=== PATIENT | male | born 1970 | race Caucasian/White ===

== ENCOUNTER 2019-12-02 21:00 | Emergency (ER) | payer SELFPAY ==
[2019-12-02 21:13] VITALS: BP 138/96; PULSE 70
[2019-12-02] MEDS ORDERED: Cyclobenzaprine 10 MG Tab PO ONE (21:30)
[2019-12-02] MEDS ORDERED: Ketorolac 60 MG/2 ML SDV IM ONE (21:30)
--- NOTE | 2019-12-02 21:34 | EDM.PDOC ---
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 He is complaining of mid back pain also had some bleeding from the back of his head which is now controlled Treatments ADAPTIVE PHYSICAL EDUCATOR: Reports: Other (see below) Other Treatments ADAPTIVE PHYSICAL EDUCATOR: none Occipital Pain Score (Numeric/FACES): 5 - Related Data Allergies Allergy/AdvReac Type Severity Reaction Status Date / Time No Known Allergies Allergy Verified 12/02/19 21:14 Home Meds: Home Meds NK [No Known Home Meds] 06/22/16 [History] Past Medical History HEENT History: Reports: Impaired Vision - Infectious Disease History Infectious Disease History: Reports: Chicken Pox - Past Surgical History GI Surgical History: Reports: Cholecystectomy Musculoskeletal Surgical History: Reports: Other (See Below) Social & Family History - Tobacco Use Smoking Status *Q: Never Smoker Second Hand Smoke Exposure: No - Caffeine Use Caffeine Use: Reports: Coffee, Soda - Recreational Drug Use Recreational Drug Use: No ED ROS GENERAL - Review of Systems Review Of Systems: See Below Constitutional: Reports: No Symptoms HEENT: Reports: No Symptoms Respiratory: Reports: Other (Pain with a deep breath) Cardiovascular: Reports: No Symptoms GI/Abdominal: Reports: No Symptoms : Reports: No Symptoms Musculoskeletal: Reports: Back Pain Skin: Reports: Wound Neurological: Reports: Headache ED EXAM, HEAD INJURY - Physical Exam Exam: See Below Text/Narrative:: Primary survey airway is open patent and clear GCS 15 lungs are clear to auscultation bilaterally cardiovascular is regular rate and rhythm S1-S2 Secondary survey General: Male, uncomfortable secondary to pain GCS of 15, alert and oriented x3 HEENT: head is atraumatic normocephalic, eyes pupils equal round reactive to light, sclera clear no conjunctivitis appreciated extraocular eye movements intact. Ears tympanic membranes clear and phan landmarks and light reflex are present bilaterally canals are clear. Nose no septal deviation, nares are clear , no blood present. Mouth mucosa is moist and pink no erythema or exudate noted in soft palate, tongue is midline uvula is midline, dentition is intact. Neck: Supple no thyromegaly no tracheal deviation. NO posterior midline C-spine tenderness NO evidence of intoxication GCS > 14 No focal neurological deficit NO distracting injury Nodes: Cervical nodes subclavicular nodes nontender no palpable lymphadenopathy noted. Lungs: clear to auscultation bilaterally with symmetrical respirations, no adventitious noise appreciated. CV: Regular rate and rhythm S1 and S2 appreciated no murmurs rubs or gallops noted. Chest he does complain of generalized tenderness in the thoracic region no point tenderness can be appreciated there is no lumbar paraspinal or spinal tenderness no bruising is noted Abdomen: Soft, nontender, no palpable masses or organomegaly appreciated, no distention no guarding bowel sounds are present, [scars ]. Neuro: GCS 15 Skin: Warm and dry, intact Extremities: No lower extremity edema appreciated, Course - Vital Signs Last Recorded V/S: Last Vital Signs Temp 96.4 F L 12/02/19 21:05 Pulse 70 12/02/19 21:05 Resp 14 12/02/19 21:05 BP 138/96 H 12/02/19 21:05 Pulse Ox 97 12/02/19 21:05 - Orders/Labs/Meds Orders: Active Orders 24 hr Category Date Time Status Vaccines to be Administered [RC] PER UNIT ROUTINE Care 12/02/19 22:48 Active Meds: Medications Discontinued Medications Generic Name Dose Route Start Last Admin Trade Name Yazanq PRN Reason Stop Dose Admin Cyclobenzaprine HCl 10 mg 12/02/19 21:30 12/02/19 21:39 Flexeril PO 12/02/19 21:31 10 mg ONETIME ONE Administration Diphtheria/Tetanus/Acell Pertussis 0.5 ml 12/02/19 22:48 12/02/19 22:55 Adacel IM 12/02/19 22:49 0.5 ml .ONCE ONE Administration Ketorolac Tromethamine 60 mg 12/02/19 21:30 12/02/19 21:39 Toradol IM 12/02/19 21:31 60 mg ONETIME ONE Administration Departure - Departure Time of Disposition: 23:11 Disposition: Home, Self-Care 01 Condition: Fair Clinical Impression: Head injury Qualifiers: Encounter type: initial encounter Qualified Code(s): S09.90XA - Unspecified injury of head, initial encounter Back injury Qualifiers: Encounter type: initial encounter Qualified Code(s): S39.92XA - Unspecified injury of lower back, initial encounter - Discharge Information Instructions: Concussion, Adult, Back Exercises, [id number], Head Injury, Adult, [id number] Referrals: PCP,None [Primary Care Provider] - Forms: ED Department Discharge Additional Instructions: Use ibuprofen for baseline pain control, use hydrocodone for breakthrough pain, use Flexeril as needed for muscle spasms, please followup with your primary care provider in 3-5 days if not better, please call return to the emergency department with worsening of symptoms. Sepsis Event Note - Evaluation Sepsis Screening Result: No Definite Risk - Focused Exam Vital Signs: Vital Signs Temp Pulse Resp BP Pulse Ox 12/02/19 21:05 96.4 F L 70 14 138/96 H 97 Date Exam was Performed: 12/02/19 Time Exam was Performed: 23:09 - My Orders Last 24 Hours: My Active Orders 12/02/19 22:48 Vaccines to be Administered [RC] PER UNIT ROUTINE - Assessment/Plan Last 24 Hours: My Active Orders 12/02/19 22:48 Vaccines to be Administered [RC] PER UNIT ROUTINE Plan: Assessment Acuity = acute Site and laterality = head injury and back injury Etiology = secondary to a fall Manifestations = pain Location of injury = work Lab values = CT scan of the head and thoracic spine show no acute process Plan Some relief with combination Toradol Flexeril prescription written for Flexeril 1 tab p.o. 3 times daily PRN total #15 and hydrocodone 5/325 1 tab p.o. 3 times daily PRN total #10 follow-up primary care 3 to 5 days if not better This note was dictated using [employer] voice recognition software please call with any questions on syntax or grammar.
[2019-12-02] MEDS ORDERED: Diphtheria,Pertussis(Acell),Tetanus Vaccine 0.5 ML SDV IM ONE (22:48)
--- NOTE | 2019-12-02 22:49 | CRLCT ---
Indication: Trauma, pain Technique: Nonenhanced axial CT imaging through the head. Coronal reconstructions are provided. Comparison: None Findings: There is no intracranial hemorrhage, edema, or mass effect. There is normal attenuation of the brain parenchyma. The ventricles are normal in size. The basal cisterns are patent. The calvarium is intact. The visualized paranasal sinuses and mastoid air cells are aerated. Impression: No acute intracranial process. Please note that all CT scans at this facility use dose modulation, iterative reconstruction, and/or weight-based dosing when appropriate to reduce radiation dose to as low as reasonably achievable. Dictated by Andrew Montalvo MD @ Dec 02 2019 10:45PM Signed by Dr. Andrew Montalvo @ Dec 02 2019 10:47PM
--- NOTE | 2019-12-02 23:02 | CRLCR ---
INDICATION: Pain at the T6 level following trauma TECHNIQUE: Thoracic spine 3 view. COMPARISON: None FINDINGS: Bones: Alignment is normal. No fractures or significant bone lesions. Joints: Multilevel degenerative changes. Soft tissues: Unremarkable. IMPRESSION: No evidence of acute trauma. Multilevel degenerative changes. Dictated by Mann Miller MD @ 12/02/2019 11:00:30 PM Dictated by: Mann Miller MD @ 12/02/2019 23:00:36 (Electronically Signed)
== END 2019-12-02 23:29 | disposition home or self-care (01) ==
LOC: JP.ED 21:00
DX: S09.90XA Unspecified injury of head, initial encounter (principal); S29.9XXA Unspecified injury of thorax, initial encounter; Z23 Encounter for immunization; W00.0XXA Fall on same level due to ice and snow, initial encounter; Y99.0 Civilian activity done for income or pay
CPT/HCPCS: 70450; 72070; 90471; 90715; 96372; 99284; A9270; J1885; 99283

== ENCOUNTER 2024-04-05 23:29 | Emergency (ER) | payer OTHER ==
[2024-04-05 23:49] VITALS: BP 141/85; PULSE 95
== END 2024-04-06 00:26 | disposition home or self-care (01) ==
LOC: JP.ED 23:29
DX: S91.351A Open bite, right foot, initial encounter (principal); Z90.49 Acquired absence of other specified parts of digestive tract; W55.01XA Bitten by cat, initial encounter
CPT/HCPCS: 99283